=== PATIENT | female | born 1965 | race Caucasian/White ===

== ENCOUNTER 2017-11-11 23:41 | Emergency (ER) | payer OTHER ==
[2017-11-11] MEDS ORDERED: FAMOTIDINE IV 20 MG/12 ML VIAL IVPUSH ONE (23:48)
[2017-11-11] MEDS ORDERED: methylPREDNISolone NA SUCC 125 MG/2 ML VIAL IVPB ONE (23:51)
--- NOTE | 2017-11-11 23:53 | PDOC ---
History of Present Illness - General Chief Complaint: Allergic Reaction Stated Complaint: ALLERGIC REACTION Time Seen by Provider: 11/11/17 23:52 - History of Present Illness Initial Comments: 11/11/17 23:54 52yo female presents ambulatory with her for eval of acute allergic reaction. States she took augmentin about 1 hour [employer]. States she has a son with muscular dystrophy and felt like she may be getting sick so she took an augmentin she had left over from a prior prescription. Pt states she broke out in a rash and feels itch all over. Pt with urticaria and rash to face, neck, chest, abd, arms. No rash on legs. Pt denies stark. No rhinorrhea or sore throat. No cough. No cp/sob. No abd pain. Pt denies abd pain. No n/v/d. No dysuria. Pt unable to describe what she was feeling when she said she was feeling "sick". Pt speaking in full sentences. Pt tolerating secretions. No wheezing. No stridor. no lip or tongue swelling. No swelling to posterior pharynx. No diarrhea. No other complaints. 11/12/17 00:00 PMhx: denies Pshx: breast core bx Allergies: NKDA until augmentin today Past History - Past Medical History Allergies/Adverse Reactions: Allergies Allergy/AdvReac Type Severity Reaction Status Date / Time amoxicillin [From Augmentin] Allergy Verified 11/11/17 23:54 clavulanic acid Allergy Verified 11/11/17 23:54 [From Augmentin] Home Medications: Ambulatory Orders Diphenhydramine HCl [Benadryl -] 25 mg PO Q6H PRN #28 capsule 11/12/17 EPINEPHrine (EPI-PEN 0.3MG) [Epipen 0.3MG -] 0.3 mg IM ASDIR #2 pens 11/12/17 Famotidine [Pepcid -] 20 mg PO DAILY #7 tablet 11/12/17 Prednisone [Deltasone] 40 mg PO DAILY #8 tablet 11/12/17 Review of Systems - Review of Systems Able to Perform ROS?: Yes Is the patient limited Maltese proficient: No Constitutional: No: Chills, Fever HEENTM: No: Blurred Vision, Double Vision Respiratory: No: Cough, Shortness of Breath, Stridor, Wheezing Cardiac (ROS): No: Chest Pain, Palpitations ABD/GI: No: Diarrhea, Nausea, Vomiting, Abdominal cramping : No: Burning, Dysuria Musculoskeletal: No: Back Pain Integumentary: Yes: Pruritus, Rash, Other (urticaria) Neurological: No: Headache, Numbness, Tingling All Other Systems: Reviewed and Negative *Physical Exam - Physical Exam General Appearance: Yes: Nourished, Appropriately Dressed, Moderate Distress, Other (anxious) HEENT: positive: EOMI, MIGUEL, Normal ENT Inspection, Normal Voice, Pharynx Normal. negative: Muffled/Hoarse voice, Tonsillar Exudate, Tonsillar Erythema, Rhinorrhea, Excessive drooling Neck: positive: Trachea midline, Supple. negative: Rigid, Stridor Respiratory/Chest: positive: Lungs Clear, Normal Breath Sounds. negative: Respiratory Distress, Rales, Rhonchi, Stridor, Wheezing Cardiovascular: positive: Regular Rhythm, S1, S2, Tachycardia Gastrointestinal/Abdominal: positive: Normal Bowel Sounds, Flat, Soft. negative : Guarding, Rebound, Tenderness Musculoskeletal: positive: Normal Inspection Extremity: positive: Normal Capillary Refill, Normal Inspection, Normal Range of Motion Integumentary: positive: Dry, Warm, Erythema, Hives Neurologic: positive: assembly person II-XII NML intact, Fully Oriented, Alert Medical Decision Making - Medical Decision Making 11/12/17 00:11 a/p: 52yo female with acute allergic reaction - most likely to Augmentin -will add augmentin to allergy profile -will treat for allergic reaction - iv zantac, solumedrol, ivf hydration, benadryl -no stridor or wheezing -pt denies new foods, detergents, lotions or any other new contact other than taking augmentin. -will monitor and reassess 11/12/17 00:20 re-eval: pt improved urticaria. feeling less itchy 11/12/17 00:37 called by nurse, urticaria and rash returning. pt c/o feeling pruritis will give epi IM 11/12/17 01:42 re-eval: urticaria resolved again. rash resolved. no shortness of breath. no difficulty breathing. speaking in full sentences. tolerating secretions. No swelling to posterior pharynx/lips/tongue 11/12/17 01:48 pt will be signed out to the oncoming ED physician pending re-eval, monitoring after IM epi Rx sent to pharmacy for allergic reaction recommended to patient outpt follow up with corporate quality manager for testing. *DC/Admit/Observation/Transfer Diagnosis at time of Disposition: Allergic reaction - Discharge Dispostion Condition at time of disposition: Stable Admit: No - Prescriptions Prescriptions: Diphenhydramine HCl [Benadryl -] 25 mg PO Q6H PRN #28 capsule PRN Reason: For Itching EPINEPHrine (EPI-PEN 0.3MG) [Epipen 0.3MG -] 0.3 mg IM ASDIR #2 pens Famotidine [Pepcid -] 20 mg PO DAILY #7 tablet Prednisone [Deltasone] 40 mg PO DAILY #8 tablet - Referrals Referrals: ON STAFF,NOT [Primary Care Provider] - Viraj Blue MD [Staff Physician] - - Patient Instructions Printed Discharge Instructions: DI for Adverse Drug Reaction -- Allergic Additional Instructions: Please take all meds as prescribed. Please do not take amoxicillin/clavulonic acid. Please make an appointment to see your PMD in 1-2 days. Please also make an appointment to see the corporate quality manager in 1-2 days for follow up on your allergic reaction. Please return to the ED immediately if you use the EPIPEN. Please return to the ED with any further complaints. - Post Discharge Activity
[2017-11-11 23:54] VITALS: BMI 23.3
[2017-11-12] MEDS ORDERED: RANITIDINE HCL 150 MG TABLET (FP) PO ONE (00:04)
[2017-11-12] MEDS ORDERED: SODIUM CHLORIDE 0.9% 1000 ML INFUS.BAG IV ONE (00:10)
[2017-11-12] MEDS ORDERED: EPINEPHrine 1:1,000 0.3 MG/0.3 ML SYR IM ONE (00:35)
[2017-11-12] MEDS ORDERED: diphenhydrAMINE HCL 25 MG CAPSULE (FP) PO ONE ×2 (00:57→02:10)
--- NOTE | 2017-11-12 06:10 | PDOC ---
*Physical Exam - Vital Signs Last Vital Signs Temp Pulse Resp BP Pulse Ox 98.3 F 107 H 12 142/74 100 11/11/17 23:52 11/11/17 23:52 11/11/17 23:52 11/11/17 23:52 11/11/17 23:52 ED Treatment Course - Medications Given in the ED: ED Medications Discontinued Medications Generic Name Dose Route Start Last Admin Trade Name Freq PRN Reason Stop Dose Admin Diphenhydramine HCl 50 mg 11/11/17 23:51 11/11/17 23:55 Benadryl Injection - IVPB 11/11/17 23:52 50 mg ONCE ONE Administration Diphenhydramine HCl 25 mg 11/12/17 00:57 11/12/17 02:12 Benadryl - PO 11/12/17 00:58 25 mg ONCE ONE Administration Epinephrine 0.3 mg 11/12/17 00:35 11/12/17 00:44 Epipen 0.3mg - IM 11/12/17 00:36 0.3 mg ONCE ONE Administration Famotidine 20 mg in 12 mls @ 144 mls/hr 11/11/17 23:48 11/12/17 00:04 Pepcid 20 Mg/12 Ml Push IVPUSH 11/12/17 00:04 Not Given NOW ONE Methylprednisolone Sodium Succinate 125 mg 11/11/17 23:51 11/11/17 23:55 Solu-Medrol - IVPB 11/11/17 23:52 125 mg ONCE ONE Administration Ranitidine HCl 150 mg 11/12/17 00:04 11/12/17 00:15 Zantac - PO 11/12/17 00:05 150 mg ONCE ONE Administration Sodium Chloride 1,000 ml 11/12/17 00:10 11/12/17 00:15 Normal Saline - IV 11/12/17 00:11 1,000 ml ONCE ONE Administration *DC/Admit/Observation/Transfer Diagnosis at time of Disposition: Allergic reaction - Discharge Dispostion Condition at time of disposition: Stable Admit: No - Prescriptions Prescriptions: Diphenhydramine HCl [Benadryl -] 25 mg PO Q6H PRN #28 capsule PRN Reason: For Itching EPINEPHrine (EPI-PEN 0.3MG) [Epipen 0.3MG -] 0.3 mg IM ASDIR #2 pens Famotidine [Pepcid -] 20 mg PO DAILY #7 tablet Prednisone [Deltasone] 40 mg PO DAILY #8 tablet - Referrals Referrals: ON STAFF,NOT [Primary Care Provider] - Viraj Blue MD [Staff Physician] - - Patient Instructions Printed Discharge Instructions: DI for Adverse Drug Reaction -- Allergic Additional Instructions: Please take all meds as prescribed. Please do not take amoxicillin/clavulonic acid. Please make an appointment to see your PMD in 1-2 days. Please also make an appointment to see the latex ribbon machine operator in 1-2 days for follow up on your allergic reaction. Please return to the ED immediately if you use the EPIPEN. Please return to the ED with any further complaints. - Post Discharge Activity
[2017-11-12 06:25] VITALS: BP 128/70; PULSE 80; TEMP 97.8
== END 2017-11-12 06:25 | disposition home or self-care (01) ==
LOC: JER 23:41
PROC: 3E033GC Introduction of Other Therapeutic Substance into Peripheral Vein, Percutaneous Approach (ICD-10-PCS; principal; 2017-11-11)
PROC: 3E023GC Introduction of Other Therapeutic Substance into Muscle, Percutaneous Approach (ICD-10-PCS; 2017-11-11)
PROC: 3E0337Z Introduction of Electrolytic and Water Balance Substance into Peripheral Vein, Percutaneous Approach (ICD-10-PCS; 2017-11-11)
DX: T78.40XA Allergy, unspecified, initial encounter (principal)
CPT/HCPCS: 99284-25